=== PATIENT | male | born 1985 | race African-American/Black ===

== ENCOUNTER 2018-06-28 15:40 | Emergency (ER) | payer OTHER ==
[~2018-06-28] VITALS: Ht 190.5 cm; Wt 90.9 kg
[2018-06-28 17:18] VITALS: BP 155/63
== END 2018-06-28 18:36 | disposition left against medical advice (07) ==
LOC: EMS 15:41
DX: R07.89 Other chest pain (principal); R55 Syncope and collapse; F31.9 Bipolar disorder, unspecified; F17.210 Nicotine dependence, cigarettes, uncomplicated
CPT/HCPCS: 93005